=== PATIENT | female | born 1970 | race Caucasian/White ===

== ENCOUNTER 2017-09-26 08:39 | Observation (INO) | payer BC ==
[2017-09-26] MEDS ORDERED: ASPIRIN PO ONE (08:50)
[2017-09-26] MEDS ORDERED: NITROSTAT SL PRN (08:50)
[2017-09-26] MEDS ORDERED: MORPHINE SULFATE INJ 4 MG ONE ×2 (08:57→09:34)
[2017-09-26] MEDS ORDERED: MORPHINE SULFATE INJ 4 MG IVP ONE ×2 (08:57→09:33)
--- NOTE | 2017-09-26 08:57 | DR.CP ---
HPI - Time Seen Time seen: 08:55 - Complaint Chief Complaint Doctor Comments: Patient reports that she had acute onset of left chest pain radiating to the left shoulder about two hours priors prior to being seen. She admits to having tripple bypass in 2010 and is being followed by Dr Brewer. The pain persist at level of 8. She also admits to having chronic hypotension systolic in the low 90s. She denies any clinical symptoms. Her registration scheduling specialist is aware but no intervention. She has no immediated family history of cardiac disease. She denies cigarette use. - Source History Provided: Patient - Mode of Arrival Mode of Arrival: Ambulatory - Timing Came on: Suddenly - Duration Duration: Since Onset Duration: Hours - Location Location of Chest Pain: Left Chest Pain Radiation Location: Left Shoulder - Context Onset: At rest Cardiac Risk Factors: None PMH - PMH Past Medical History: Coronary Artery Disease, Depression, Dyslipidemia, Migraines, GERD, ID Past Surgical History: Yes Surgical History: Appendectomy, CABG/Valve Surgery, Cholecystectomy, [employer] Surgery - Family History Family Medical History: Cancer, Hypertension - Social History Do you use any recreational Drugs:: No ROS - Review of Systems Eyes: No Symptoms Reported ENTM: No Symptoms Reported Respiratoy: No Symptoms Reported Cardiovascular: No Symptoms Reported Gastrointestinal/Abdominal: No Symptoms Reported Genitourinary: No Symptoms Reported Neurological: No Symptoms Reported Musculoskeletal: Chest wall Integumentary: No Symptoms Reported Hematologic/Lymphatic: No Symptoms Reported Endocrine: No Symptoms Reported Psychiatric: No Symptoms Reported All Other Systems: Reviewed and Negative PE - Vitals Vitals: Temperature 98.4 F Pulse Rate [Left Dorsalis 69 Pedis] Pulse Rate 71 Respiratory Rate 20 Blood Pressure [Left Arm] 112/60 Blood Pressure [Right Arm] 91/59 Blood Pressure 131/69 O2 Sat by Pulse Oximetry 99 - General Limitations: No Limitations General Appearance: Alert - Head Head Exam: Normal Inspection, Atraumatic - Eyes Eye exam: Normal Appearance, PERRL, EOMI - ENT ENT Exam: Normal Exam - Chest Chest Inspection: Normal Inspection, Symmetric Chest Wall Rise - Respiratory Respiratory Exam: Normal Lung Sounds Bilat Respiratory Exam: Bilateral Clear to Auscultation - Cardiovascular Cardiovascular Exam: Regular Rate, Normal Rhythm Pulse: Normal, Radial Edema: Normal - Abdominal Exam Abdominal Exam: Normal Inspection, Normal Bowel Sounds Abdominal Tenderness: negative: RUQ, RLQ, LUQ, LLQ, Epigastrium, Suprapubic, Diffuse, Mild, Moderate, Severe, Other - Extremities Extremities Exam: Normal Inspection, Full ROM - Back Back Exam: Normal Inspection - Neurologic Neurological Exam: Alert, Oriented X3, CN II-XII Intact - Psychiatric Psychiatric Exam: Normal Affect, Normal Mood, Depressed - Skin Skin Exam: Warm, Dry Course - Reevaluation 1st: Improved - Consultation Called: 10:50 (Dr John Agreed to admit for chest pain r/o protocol) ROR - Labs Reviewed Result Diagrams: 09/26/17 09:10 09/26/17 09:10 Laboratory: WBC 9.9 X10^3/uL (3.6-10.0) 09/26/17 09:10 RBC 4.79 X10^6/uL (3.5-5.4) 09/26/17 09:10 Hgb 13.1 g/dL (12.0-16.0) 09/26/17 09:10 Hct 39.7 % (36.0-47.0) 09/26/17 09:10 MCV 83.0 fL (80.0-100.0) 09/26/17 09:10 MCH 27.3 pg (27.0-34.0) 09/26/17 09:10 MCHC 32.9 g/dL (33.0-35.0) L 09/26/17 09:10 RDW 13.8 % (11.6-16.5) 09/26/17 09:10 Plt Count 422 X10^3/uL (150.0-450.0) 09/26/17 09:10 MPV 7.3 fL (7.4-11.0) L 09/26/17 09:10 Neut % (Auto) 42.5 % (42.0-75.0) 09/26/17 09:10 Lymph % (Auto) 32.5 % (21.0-51.0) 09/26/17 09:10 [place] % (Auto) 8.5 % (0.0-13.0) 09/26/17 09:10 Eos % (Auto) 15.5 % (0.9-2.9) H 09/26/17 09:10 Baso % (Auto) 1.0 % (0.2-1.0) 09/26/17 09:10 Neut # (Auto) 4.2 x10^3/uL (2.2-4.8) 09/26/17 09:10 Lymph # (Auto) 3.2 X10^3/uL (1.3-2.9) H 09/26/17 09:10 [place] # (Auto) 0.8 x10^3/uL (0.3-0.8) 09/26/17 09:10 Eos # (Auto) 1.5 x10^3/uL (0.0-0.2) H 09/26/17 09:10 Baso # (Auto) 0.1 X10^3/uL (0.0-0.1) 09/26/17 09:10 Absolute Nucleated RBC 0.1 /100WBC 09/26/17 09:10 INR Target Range - 09/26/17 09:10 INR 0.98 (0.8-1.3) 09/26/17 09:10 APTT 27.5 SECONDS (22.9-36.5) 09/26/17 09:10 PTT Comment - 09/26/17 09:10 Sodium 140 mmol/L (136-145) 09/26/17 09:10 Corrected Sodium TNP 09/26/17 09:10 Potassium 4.5 mmol/L (3.5-5.1) 09/26/17 09:10 Chloride 106 mmol/L (98-107) 09/26/17 09:10 Carbon Dioxide 25.6 mmol/L (21-32) 09/26/17 09:10 BUN 13 mg/dL (7-18) 09/26/17 09:10 Creatinine 0.83 mg/dL (0.55-1.02) 09/26/17 09:10 Est GFR (MDRD) Af Amer > 60 (>60) 09/26/17 09:10 Est GFR (MDRD) Non-Af > 60 (>60) 09/26/17 09:10 Glucose 90 mg/dL (65-99) 09/26/17 09:10 Calcium 7.8 mg/dL (8.5-10.1) L 09/26/17 09:10 Corrected Calcium TNP 09/26/17 09:10 Magnesium 2.0 mg/dL (1.7-2.9) 09/26/17 09:10 Total Bilirubin 0.40 mg/dL (0.2-1.0) 09/26/17 09:10 AST 14 Units/L (15-37) L 09/26/17 09:10 ALT 27 Units/L (12-78) 09/26/17 09:10 Alkaline Phosphatase 73 Units/L (46-116) 09/26/17 09:10 Creatine Kinase 45 Units/L (26-192) 09/26/17 09:10 CK-MB (CK-2) < 1.0 ng/mL (0-4.0) 09/26/17 09:10 CK/CKMB % Calc 2.2 % (<4) 09/26/17 09:10 Troponin I < 0.02 ng/mL (0-1.5) 09/26/17 09:10 Total Protein 6.9 g/dL (6.4-8.2) 09/26/17 09:10 Albumin 3.5 g/dL (3.4-5.0) 09/26/17 09:10 Globulin 3.4 g/dL (2.5-4.5) 09/26/17 09:10 Albumin/Globulin Ratio 1.0 Ratio (1.1-2.1) L 09/26/17 09:10 - XRAY XRAY Interpreted by: Radiologist (Chest: Mild cardiomegaly, post CABG without acute abnormality) - EKG Compared to prior EKG Dated: 07/05/15 (No significant change) - Diagnosis Discharge Problem: Ruled out for myocardial infarction Chest pain Qualifiers: Chest pain type: unspecified Qualified Code(s): R07.9 - Chest pain, unspecified - Discharge Plan Condition: Stable - Follow ups/Referrals Follow ups/Referrals: MADI PERLA [Primary Care Provider] - 3 days - Instructions
[2017-09-26 09:29] LABS: BASOPHILS # (AUTO) 0.1 X10^3/uL (0.0-0.1); EOSINOPHILS # (AUTO) 1.5 x10^3/uL (0.0-0.2); EOSINOPHILS % (AUTO) 15.5 % (0.9-2.9); HEMATOCRIT 39.7 % (36.0-47.0); HEMOGLOBIN 13.1 g/dL (12.0-16.0); LYMPHOCYTES # (AUTO) 3.2 X10^3/uL (1.3-2.9); LYMPHOCYTES % (AUTO) 32.5 % (21.0-51.0); MEAN CORPUSCULAR HEMOGLOBIN 27.3 pg (27.0-34.0); MEAN CORPUSCULAR HGB CONC 32.9 g/dL (33.0-35.0); MEAN PLATELET VOLUME 7.3 fL (7.4-11.0); MONOCYTES # (AUTO) 0.8 x10^3/uL (0.3-0.8); MONOCYTES % (AUTO) 8.5 % (0.0-13.0); NEUTROPHILS # (AUTO) 4.2 x10^3/uL (2.2-4.8); NEUTROPHILS % (AUTO) 42.5 % (42.0-75.0); PLATELET COUNT 422 X10^3/uL (150.0-450.0); RED BLOOD COUNT 4.79 X10^6/uL (3.5-5.4); RED CELL DISTRIBUTION WIDTH 13.8 % (11.6-16.5); WHITE BLOOD COUNT 9.9 X10^3/uL (3.6-10.0)
[2017-09-26] MEDS: NS 1000 ML 1,000 ML IV SCH ×2 (09:36→16:24)
[2017-09-26 09:39] LABS: CKMB % 2.2 % (<4); CREATINE KINASE 45 Units/L (26-192); CREATINE KINASE MB < 1.0 ng/mL (0-4.0); TROPONIN I < 0.02 ng/mL (0-1.5)
[2017-09-26 09:44] LABS: ALANINE AMINOTRANSFERASE 27 Units/L (12-78); ALBUMIN 3.5 g/dL (3.4-5.0); ALKALINE PHOSPHATASE 73 Units/L (46-116); ASPARTATE AMINO TRANSFERASE 14 Units/L (15-37); BLOOD UREA NITROGEN 13 mg/dL (7-18); CALCIUM 7.8 mg/dL (8.5-10.1); CARBON DIOXIDE 25.6 mmol/L (21-32); CHLORIDE 106 mmol/L (98-107); CREATININE 0.83 mg/dL (0.55-1.02); SODIUM 140 mmol/L (136-145); TOTAL PROTEIN 6.9 g/dL (6.4-8.2); eGFR BLACK RACES > 60 (>60); eGFR NON BLACK RACES > 60 (>60)
[2017-09-26] MEDS ORDERED: ZOFRAN INJ 4 MG VIAL IVP ONE (10:25)
[2017-09-26] MEDS ORDERED: ZOFRAN INJ 4 MG VIAL ONE (10:26)
--- NOTE | 2017-09-26 10:41 | RAD ---
HISTORY: Left-sided chest pain Study: Single view chest Comparison:None Findings: No infiltrate, effusion or pneumothorax identified. Sternotomy changes are noted post CABG with mild enlargement of the cardiac silhouette. The soft tissues are unremarkable. IMPRESSION: 1. Mild cardiomegaly, post CABG without acute abnormality. Reported By:
[2017-09-26] MEDS ORDERED: MORPHINE SULFATE INJ 2 MG INJ IVP PRN (13:19)
[2017-09-26] MEDS ORDERED: ZOFRAN INJ 4 MG VIAL IVP PRN (13:21)
[2017-09-26 14:18] VITALS: BMI 33.6
[2017-09-26 15:26] LABS: CKMB % 2.2 % (<4); CREATINE KINASE 46 Units/L (26-192); CREATINE KINASE MB < 1.0 ng/mL (0-4.0); TROPONIN I < 0.02 ng/mL (0-1.5)
[2017-09-26 21:36] LABS: CKMB % 2.2 % (<4); CREATINE KINASE 45 Units/L (26-192); CREATINE KINASE MB < 1.0 ng/mL (0-4.0); TROPONIN I < 0.02 ng/mL (0-1.5)
[2017-09-26] MEDS: TYLENOL 325 MG TAB PO PRN (21:46)
[2017-09-27] MEDS: NS 1000 ML 1,000 ML IV SCH ×2 (00:26→06:12)
[2017-09-27 06:04] LABS: ALANINE AMINOTRANSFERASE 20 Units/L (12-78); ALBUMIN 2.8 g/dL (3.4-5.0); ALKALINE PHOSPHATASE 59 Units/L (46-116); ASPARTATE AMINO TRANSFERASE 12 Units/L (15-37); BLOOD UREA NITROGEN 8 mg/dL (7-18); CALCIUM 7.2 mg/dL (8.5-10.1); CARBON DIOXIDE 22.7 mmol/L (21-32); CHLORIDE 108 mmol/L (98-107); CHOLESTEROL 145 mg/dL (0-200); COR CA(FOR HYPOALB) 8.2 mg/dL (8.5-10.1); CREATININE 0.75 mg/dL (0.55-1.02); HDL CHOLESTEROL 29 mg/dL (40-60); SODIUM 139 mmol/L (136-145); TOTAL PROTEIN 5.9 g/dL (6.4-8.2); TRIGLYCERIDES 85 mg/dL (0-150); eGFR BLACK RACES > 60 (>60); eGFR NON BLACK RACES > 60 (>60)
[2017-09-27 06:11] LABS: BASOPHILS # (AUTO) 0.1 X10^3/uL (0.0-0.1); BASOPHILS % (AUTO) 0.9 % (0.2-1.0); EOSINOPHILS # (AUTO) 1.1 x10^3/uL (0.0-0.2); EOSINOPHILS % (AUTO) 12.4 % (0.9-2.9); HEMATOCRIT 35.6 % (36.0-47.0); HEMOGLOBIN 11.8 g/dL (12.0-16.0); LYMPHOCYTES # (AUTO) 2.9 X10^3/uL (1.3-2.9); LYMPHOCYTES % (AUTO) 33.3 % (21.0-51.0); MEAN CORPUSCULAR HEMOGLOBIN 27.4 pg (27.0-34.0); MEAN CORPUSCULAR HGB CONC 33.1 g/dL (33.0-35.0); MEAN CORPUSCULAR VOLUME 82.9 fL (80.0-100.0); MEAN PLATELET VOLUME 7.6 fL (7.4-11.0); MONOCYTES # (AUTO) 0.7 x10^3/uL (0.3-0.8); MONOCYTES % (AUTO) 7.9 % (0.0-13.0); NEUTROPHILS % (AUTO) 45.5 % (42.0-75.0); PLATELET COUNT 349 X10^3/uL (150.0-450.0); WHITE BLOOD COUNT 8.8 X10^3/uL (3.6-10.0)
[2017-09-27] MEDS: TYLENOL 325 MG TAB PO PRN (06:22)
[2017-09-27 15:49] VITALS: BP 112/62
== END 2017-09-27 13:40 | disposition home or self-care (01) ==
LOC: ER 08:53 → MED/SURG 11:46
PROVIDERS: ADMIT Obstetrics & Gynecology Obstetrics; ATTEND Obstetrics & Gynecology Obstetrics
DX: R07.89 Other chest pain (principal); D72.1 Eosinophilia; I95.89 Other hypotension; I25.10 Atherosclerotic heart disease of native coronary artery without angina pectoris; I51.7 Cardiomegaly; R94.31 Abnormal electrocardiogram [ECG] [EKG]
CPT/HCPCS: 36415; 71045; 80053; 80061; 82550; 82553; 83605; 83735; 84484; 85025; 85610; 85730; 93005; 93010; 94760; 96365; 96367; 96374; 96375; 99284; A4222; G0378; J2270; J2405